=== PATIENT | female | born 1965 | race Caucasian/White ===

== ENCOUNTER 2021-08-21 06:08 | Inpatient (IN) | payer OTHER, BC ==
[2021-08-09 16:52] VITALS: BMI 24.6
[2021-08-21] MEDS ORDERED: CELECOXIB 200 MG CAPSULE PO ONE (06:50)
[2021-08-21] MEDS ORDERED: CELECOXIB 200 MG CAPSULE ONE (07:01)
[2021-08-21] MEDS ORDERED: VANCOMYCIN 1,000 MG VIAL (RESTRICTED TO ID ONLY) ONE ×2 (07:41→08:19)
[2021-08-21] MEDS ORDERED: BUPIVACAINE HCL/PF 0.5% (5 MG/ML) 30 ML VIAL IJ ONE (07:46)
[2021-08-21] MEDS ORDERED: BUPIVACAINE HCL/PF 0.5% (5MG/ML) 10 ML VIAL ONE (07:47)
[2021-08-21] MEDS ORDERED: MIDAZOLAM HCL 2 MG/2 ML SINGLE DOSE VIAL ONE (07:47)
[2021-08-21] MEDS ORDERED: TRANEXAMIC ACID 1000 MG/10 ML VIAL IVPUSH ONE (08:00)
[2021-08-21] MEDS ORDERED: CEFAZOLIN 2 GM in DEXTROSE 5%-WATER - 50 ML IVPB ONE (08:00)
[2021-08-21] MEDS ORDERED: ceFAZolin SODIUM 1 GM VIAL ONE ×3 (08:19→21:07)
[2021-08-21] MEDS ORDERED: TRANEXAMIC ACID 1000 MG/10 ML VIAL ONE ×2 (08:19→10:18)
[2021-08-21] MEDS ORDERED: PROPOFOL 20 ML ONE ×2 (08:19)
[2021-08-21] MEDS ORDERED: SUCCINYLCHOLINE CHLORIDE 200 MG/10 ML SYRINGE ONE (08:19)
[2021-08-21] MEDS ORDERED: ONDANSETRON 4 MG/2 ML VIAL ONE (08:24)
[2021-08-21] MEDS ORDERED: DEXAMETHASONE SOD PHOSPHATE 4 MG/1 ML VIAL ONE (08:24)
[2021-08-21] MEDS ORDERED: BUPIVICAINE 0.25%/MORPH PF/KETOROLAC - 51ML DISP.SYRINGE IA ONE ×2 (09:43→10:37)
[2021-08-21] MEDS ORDERED: ONDANSETRON 4 MG/2 ML VIAL IVPUSH PRN ×2 (10:51→11:07)
[2021-08-21] MEDS ORDERED: oxyCODONE HCL 5 MG TABLET PO PRN (10:52)
[2021-08-21] MEDS ORDERED: MAG HYDROX/AL HYDROX/SIMETH 30 ML UNIT-DOSE CUP PO PRN (11:07)
[2021-08-21] MEDS ORDERED: MAGNESIUM HYDROX 2400MG/30ML ORAL SUSPENSION 30 ML CUP PO PRN (11:07)
[2021-08-21] MEDS ORDERED: LACTATED RINGERS SOLUTION 1,000 ML IV SCH (11:15)
[2021-08-21] MEDS ORDERED: DEXTROSE 5%-WATER - 50 ML IVPB ONE ×2 (16:09→21:07)
[2021-08-21] MEDS: CEFAZOLIN 2 GM in DEXTROSE 5%-WATER - 50 ML IVPB SCH (16:26)
[2021-08-21] MEDS: INSULIN SLIDING SCALE (NOVOLOG) 1 VIAL SQ SCH ×2 (17:53→21:43)
[2021-08-21] MEDS: oxyCODONE HCL 5 MG TABLET PO PRN (18:55)
[2021-08-21] MEDS ORDERED: HYDROmorphone HCl 2 MG/ML VIAL IVPB ONE (20:00)
[2021-08-21] MEDS: SENNOSIDES/DOCUSATE COMBO (SENNA PLUS) TABLET (UD) PO SCH (21:21)
[2021-08-21] MEDS: GABAPENTIN 300 MG CAPSULE PO SCH (21:22)
[2021-08-21] MEDS ORDERED: ROSUVASTATIN CA 20 MG TABLET PO SCH (22:00)
[2021-08-21] MEDS ORDERED: metoPROLOL SUCCINATE 25 MG TAB.SR.24H (FP) PO SCH (22:00)
[2021-08-22] MEDS: CEFAZOLIN 2 GM in DEXTROSE 5%-WATER - 50 ML IVPB SCH ×2 (00:30→07:39)
[2021-08-22] MEDS: oxyCODONE HCL 5 MG TABLET PO PRN ×4 (01:43→16:15)
[2021-08-22] MEDS: INSULIN SLIDING SCALE (NOVOLOG) 1 VIAL SQ SCH ×3 (06:48→16:17)
[2021-08-22] MEDS ORDERED: oxyCODONE HCL 5 MG TABLET PO PRN (07:04)
[2021-08-22] MEDS ORDERED: ceFAZolin SODIUM 1 GM VIAL ONE (07:24)
[2021-08-22] MEDS ORDERED: DEXTROSE 5%-WATER - 50 ML IVPB ONE (07:24)
[2021-08-22] MEDS ORDERED: HYDROmorphone HCL/PF 1 MG/ML VIAL IVPB ONE (07:30)
[2021-08-22] MEDS: ACETAMINOPHEN 1000 MG/100 ML BAG IVPB SCH ×2 (08:36→16:16)
[2021-08-22] MEDS: SENNOSIDES/DOCUSATE COMBO (SENNA PLUS) TABLET (UD) PO SCH (09:07)
[2021-08-22] MEDS: GABAPENTIN 300 MG CAPSULE PO SCH (09:07)
[2021-08-22 09:14] LABS: CALCIUM 8.4 mg/dl (8.5-10); CREATININE 0.6 mg/dl (0.55-1.3)
[2021-08-22] MEDS ORDERED: PANTOPRAZOLE 40 MG TABLET PO SCH (10:00)
[2021-08-22] MEDS ORDERED: ASPIRIN 325 MG TABLET PO SCH (10:00)
[2021-08-22] MEDS ORDERED: MULTIVITAMINS (DAILY MVI) TABLET (FP) PO SCH (10:00)
[2021-08-22 11:02] LABS: RBC 3.27 10^6/uL (3.60-5.2); WHITE BLOOD COUNT 10.5 10^3/uL (4.0-10.8)
[2021-08-22 11:03] LABS: HEMOGLOBIN 10.1 G/dL (10.7-15.3); MCH 30.8 pg (25.7-33.7); MCHC 33.5 g/dl (32.0-36.0); MEAN CELL VOLUME 91.7 fl (80-96); MEAN PLT VOLUME 9.3 fl (7.5-11.1); PLATELET COUNT 183.8 10^3/uL (134-434); RDW 14.1 % (11.6-15.6)
[2021-08-22 16:51] VITALS: BP 105/62; PULSE 91; TEMP 98
== END 2021-08-22 17:12 | disposition home or self-care (01) | DRG 470 ==
LOC: FM/S 06:08
PROVIDERS: ADMIT Orthopaedic Surgery Sports Medicine; ATTEND Nurse Practitioner Acute Care
PROC: 8E0W0CZ Robotic Assisted Procedure of Trunk Region, Open Approach (ICD-10-PCS; 2021-08-21)
PROC: 0SR903A Replacement of Right Hip Joint with Ceramic Synthetic Substitute, Uncemented, Open Approach (ICD-10-PCS; principal; 2021-08-21 08:41)
DX: M16.11 Unilateral primary osteoarthritis, right hip (principal); E11.9 Type 2 diabetes mellitus without complications; I10 Essential (primary) hypertension; E78.5 Hyperlipidemia, unspecified; I25.10 Atherosclerotic heart disease of native coronary artery without angina pectoris; Z98.61 Coronary angioplasty status
CPT/HCPCS: 36415; 73502-TC-RT-FY; 80048; 82962; 85027; 88305-TC; 88311-TC; 94760; 97010-GP; 97116-GP; 97162-GP

== ENCOUNTER 2024-02-27 04:12 | Day surgery (SDC) | payer OTHER, BC ==
[2024-02-25 15:46] VITALS: BMI 27.0
[2024-02-27 10:19] VITALS: RESP 18
[2024-02-27] MEDS ORDERED: ACETAMINOPHEN 325 MG TABLET (FP) ONE (12:04)
[2024-02-27] MEDS ORDERED: ACETAMINOPHEN 500 MG TABLET (FP) ONE (12:08)
[2024-02-27] MEDS: ACETAMINOPHEN 500 MG TABLET (FP) PO PRN (12:09)
[2024-02-27 12:58] VITALS: BP 120/66; PULSE 60; TEMP 98
== END 2024-02-27 13:00 | disposition home or self-care (01) ==
LOC: JASU-SURG 04:12
PROVIDERS: ATTEND Pain Medicine Pain Medicine
PROC: 3E0T3BZ Introduction of Anesthetic Agent into Peripheral Nerves and Plexi, Percutaneous Approach (ICD-10-PCS; principal; 2024-02-27 11:45)
DX: M47.816 Spondylosis without myelopathy or radiculopathy, lumbar region (principal)
CPT/HCPCS: 76000-TC-FY

== ENCOUNTER 2024-06-25 07:14 | Day surgery (SDC) | payer OTHER, BC ==
[2024-06-23 11:08] VITALS: BMI 27.0
[2024-06-25] MEDS ORDERED: ACETAMINOPHEN 500 MG TABLET (FP) PO PRN (08:49)
[2024-06-25 11:38] VITALS: RESP 20
[2024-06-25] MEDS: LIDOCAINE HCL 1% PRESERVATIVE FREE - 30ML VIAL IJ ONE (13:33)
[2024-06-25] MEDS: BUPIVACAINE HCL/PF 0.75% 10 ML VIAL NR ONE ×2 (13:35)
[2024-06-25 14:03] VITALS: BP 140/57; PULSE 58; TEMP 97
== END 2024-06-25 14:07 | disposition home or self-care (01) ==
LOC: JASU-SURG 07:14
PROVIDERS: ATTEND Pain Medicine Pain Medicine
PROC: 3E0T3BZ Introduction of Anesthetic Agent into Peripheral Nerves and Plexi, Percutaneous Approach (ICD-10-PCS; principal; 2024-06-25 12:30)
DX: M47.816 Spondylosis without myelopathy or radiculopathy, lumbar region (principal)
CPT/HCPCS: 76000-TC-FY